=== PATIENT | female | born 2000 | race African-American/Black ===

== ENCOUNTER 2023-06-27 12:28 | Emergency (ER) | payer OTHER ==
[~2023-06-27] VITALS: Ht 167.6 cm; Wt 69.5 kg
[2023-06-27] MEDS ORDERED: NAPR-849 PO (12:38)
[2023-06-27] MEDS ORDERED: BIRTH CONTROL PILL (12:38)
[2023-06-27] MEDS: KETOROLAC 30 MG/ML 1ML VIAL IV ONE (14:27)
[2023-06-27 14:40] VITALS: BP 133/75; TEMP 97.8; O2SAT 100
[2023-06-27] MEDS ORDERED: ISOVUE-370 76% 100ML VIAL As Ordered ONE (14:44)
[2023-06-27 14:46] LABS: BASO % 0.5 % (0.0-1.0); EOS # 0.1 10^3/uL (0.0-0.5); EOS % 0.8 % (0.0-3.0); HEMATOCRIT 45.5 % (36.0-47.0); HEMOGLOBIN 15.1 g/dl (12.0-15.5); LYMPH # 2.6 10^3/uL (1.5-5.0); LYMPH % 35.2 % (24.0-44.0); MEAN CORPUSCULAR HEMOGLOBIN 31.5 pg (27.0-33.0); MEAN CORPUSCULAR HGB CONC 33.2 g/dl (32.0-36.5); MEAN CORPUSCULAR VOLUME 94.8 fl (80.0-96.0); MONO # 0.6 10^3/uL (0.0-0.8); MONO % 7.9 % (2.0-8.0); NEUTROPHILS # 4.1 10^3/uL (1.5-8.5); NEUTROPHILS % 55.5 % (36.0-66.0); PLATELET COUNT, AUTOMATED 232 10^3/uL (150-450); WHITE BLOOD COUNT 7.3 10^3/uL (4.0-10.0)
[2023-06-27 15:32] LABS: RSV AMPLIFICATION NEGATIVE (NEGATIVE)
[2023-06-27] MEDS ORDERED: IBUP-1022 PO (16:05)
[2023-06-27] MEDS ORDERED: AMOX500C PO (16:05)
== END 2023-06-27 16:13 | disposition home or self-care (01) ==
LOC: M ED 12:28
DX: K08.89 Other specified disorders of teeth and supporting structures (principal); Z79.2 Long term (current) use of antibiotics; Z79.1 Long term (current) use of non-steroidal anti-inflammatories (NSAID)
CPT/HCPCS: 70491; 80047; 84702; 85025; 87631; 87880; 96374; 99283; J1885; Q9967

== ENCOUNTER → 2023-12-25 | Outpatient (CLI) | payer OTHER, SELFPAY ==
[~2023-12-25] MED LIST: AMOX500C PO; BIRTH CONTROL PILL; IBUP-1022 PO; NAPR-849 PO
== END ==
LOC: M WHC 12:33
PROVIDERS: ATTEND Nurse Practitioner Family
DX: N64.4 Mastodynia (principal)